=== PATIENT | female | born 1935 | race Native Hawaiian/Other Pacific Islander ===

== ENCOUNTER 2016-08-25 10:50 | Outpatient (CLI) | payer OTHER ==
[~2016-08-25 10:50] MED LIST: ARICEPT ODT10 MG PO; CELEXA40 MG PO; FUROSEMIDE40 MG PO; LISI20TA11 PO; METF500T PO; METO25TA4 PO; PANT40TA PO; POTASSIUM CHLO20 MEQ PO; RANITIDINE 150150 MG PO; TRAZ50TA36 PO; WARFARIN3 MG PO
== END 2016-08-25 19:51 | disposition home or self-care (01) ==
LOC: LABW 10:50
DX: Z79.01 Long term (current) use of anticoagulants (principal); Z51.81 Encounter for therapeutic drug level monitoring
CPT/HCPCS: 36415; 85610

== ENCOUNTER 2016-09-28 10:31 | Outpatient (CLI) | payer OTHER | END 2016-09-28 20:09 | disposition home or self-care (01) | LOC: LABW 10:31 | DX: Z79.01 Long term (current) use of anticoagulants (principal); Z51.81 Encounter for therapeutic drug level monitoring | CPT/HCPCS: 36415; 85610 ==

== ENCOUNTER 2016-10-20 08:57 | Outpatient (CLI) | payer OTHER | END 2016-10-20 19:21 | disposition home or self-care (01) | LOC: LABW 08:57 | DX: Z79.01 Long term (current) use of anticoagulants (principal); Z51.81 Encounter for therapeutic drug level monitoring | CPT/HCPCS: 36415; 85610 ==

== ENCOUNTER 2016-11-25 10:43 | Outpatient (CLI) | payer OTHER ==
[2016-11-25 12:05] LABS: PLATELET COUNT 199 K/uL (152-353)
[2016-11-25 12:25] LABS: POTASSIUM 4.2 mmol/L (3.6-5.2)
== END 2016-11-25 11:43 | disposition home or self-care (01) ==
LOC: LAB 10:43
PROVIDERS: Nurse Practitioner Family
DX: E11.59 Type 2 diabetes mellitus with other circulatory complications (principal); I10 Essential (primary) hypertension; E03.8 Other specified hypothyroidism; D64.89 Other specified anemias; E78.00 Pure hypercholesterolemia, unspecified; D68.8 Other specified coagulation defects; Z79.899 Other long term (current) drug therapy; Z51.81 Encounter for therapeutic drug level monitoring; E55.9 Vitamin D deficiency, unspecified
CPT/HCPCS: 80053; 80061; 82306; 82607; 83036; 84439; 84443; 85027

== ENCOUNTER 2016-11-26 12:45 | Outpatient (CLI) | payer OTHER | END 2016-11-26 19:04 | disposition home or self-care (01) | LOC: LAB 12:45 | DX: E11.59 Type 2 diabetes mellitus with other circulatory complications (principal); I10 Essential (primary) hypertension; E03.8 Other specified hypothyroidism; D64.89 Other specified anemias; E78.00 Pure hypercholesterolemia, unspecified; D68.8 Other specified coagulation defects; Z79.899 Other long term (current) drug therapy; E55.9 Vitamin D deficiency, unspecified; Z51.81 Encounter for therapeutic drug level monitoring | CPT/HCPCS: 36415; 85610 ==

== ENCOUNTER 2017-01-08 09:18 | Outpatient (CLI) | payer OTHER | END 2017-01-08 11:00 | disposition home or self-care (01) | LOC: MAMMO 09:18 | DX: Z12.31 Encounter for screening mammogram for malignant neoplasm of breast (principal) | CPT/HCPCS: G0202-TC ==

== ENCOUNTER 2017-01-21 10:26 | Emergency (ER) | payer OTHER ==
[~2017-01-21] VITALS: Ht 160 cm; Wt 73.9 kg
[2017-01-21 12:02] LABS: PLATELET COUNT 189 K/uL (152-353)
[2017-01-21 12:16] LABS: POTASSIUM 4.1 mmol/L (3.6-5.2)
[2017-01-21 15:00] VITALS: BP 154/64; TEMP 98
== END 2017-01-21 15:03 | disposition home or self-care (01) ==
LOC: ED 10:26
PROVIDERS: Specialist
DX: K57.90 Diverticulosis of intestine, part unspecified, without perforation or abscess without bleeding (principal); R10.84 Generalized abdominal pain
CPT/HCPCS: 36415; 80053; 81000; 82150; 82550; 82553; 83605; 83690; 83735; 84100; 84484; 85027; 93005; 96361; 96365; 99284

== ENCOUNTER 2017-08-21 19:57 | Emergency (ER) | payer OTHER ==
[~2017-08-21] VITALS: Ht 160 cm; Wt 74.8 kg
[~2017-08-21 19:57] MED LIST changes: +ACET-689 PO; +FLONASE AL50 MCG/ACT NAS; +GABA300C2 PO; +HYDR25CA25 PO; +JANTOVEN3 MG PO; +ONDA4TAB3 PO; +TIROSINT75 MCG PO; +TRAM50TA PO; +ZANTAC300 MG PO
[2017-08-21 21:19] LABS: PLATELET COUNT 191 K/uL (152-353)
[2017-08-21 21:27] LABS: POTASSIUM 4.1 mmol/L (3.6-5.2)
[2017-08-21 21:59] VITALS: BP 139/66; TEMP 97.9
== END 2017-08-21 22:01 | disposition home or self-care (01) ==
LOC: ED 19:57
PROVIDERS: Specialist
DX: J40 Bronchitis, not specified as acute or chronic (principal)
CPT/HCPCS: 36415; 80048; 81000; 85027; 87070; 87205; 94664; 99283; J1100

== ENCOUNTER 2017-10-21 09:06 | Outpatient (CLI) | payer OTHER | END 2017-10-21 22:20 | disposition home or self-care (01) | LOC: RAD 09:06 | DX: M25.439 Effusion, unspecified wrist (principal); M25.531 Pain in right wrist ==

== ENCOUNTER 2018-01-07 08:51 | Observation (INO) | payer OTHER ==
[~2018-01-07] VITALS: Ht 160 cm; Wt 74.4 kg
[2018-01-07] VITALS (15 sets, daily range): BP systolic 102–142; BP diastolic 40–75; TEMP 97.8–98.5; Ht 160 cm; Wt 74.4 kg
[2018-01-07 09:25] LABS: PLATELET COUNT 222 K/uL (152-353)
[2018-01-07] MEDS ORDERED: CITALOPRAM40 MG PO (09:32)
[2018-01-07] MEDS ORDERED: ESCITALOPRAM20 MG PO (09:33)
[2018-01-07 09:34] LABS: POTASSIUM 4.2 mmol/L (3.6-5.2)
[2018-01-07] MEDS ORDERED: TRAZ50TA36 PO (09:43)
[2018-01-08] VITALS (11 sets, daily range): BP systolic 117–149; BP diastolic 51–72; TEMP 98–98.7
[2018-01-08 06:31] LABS: PLATELET COUNT 218 K/uL (152-353)
[2018-01-08 06:49] LABS: POTASSIUM 4.7 mmol/L (3.6-5.2)
== END 2018-01-08 13:05 | disposition home or self-care (01) ==
LOC: ED 08:51 → ICU 10:40
DX: T78.3XXA Angioneurotic edema, initial encounter (principal); L98.8 Other specified disorders of the skin and subcutaneous tissue; E11.22 Type 2 diabetes mellitus with diabetic chronic kidney disease; I12.9 Hypertensive chronic kidney disease with stage 1 through stage 4 chronic kidney disease, or unspecified chronic kidney disease; N18.4 Chronic kidney disease, stage 4 (severe); I48.91 Unspecified atrial fibrillation; Z86.73 Personal history of transient ischemic attack (TIA), and cerebral infarction without residual deficits; E03.8 Other specified hypothyroidism; K21.9 Gastro-esophageal reflux disease without esophagitis; F03.90 Unspecified dementia, unspecified severity, without behavioral disturbance, psychotic disturbance, mood disturbance, and anxiety; I95.89 Other hypotension
CPT/HCPCS: 36415; 80053; 81000; 82962; 83735; 85027; 85651; 96360; 99220; 99284; G0378; J0690; J2920; J2930

== ENCOUNTER 2018-01-13 12:01 | Outpatient (CLI) | payer OTHER ==
[~2018-01-13 12:01] MED LIST changes: +CITALOPRAM40 MG PO; +ESCITALOPRAM20 MG PO
== END 2018-01-13 19:12 | disposition home or self-care (01) ==
LOC: MAMMO 12:01
DX: Z12.31 Encounter for screening mammogram for malignant neoplasm of breast (principal)

== ENCOUNTER 2018-06-18 06:23 | Emergency (ER) | payer OTHER ==
[~2018-06-18] VITALS: Ht 160 cm; Wt 68.0 kg
[2018-06-18 07:34] LABS: PLATELET COUNT 196 K/uL (152-353)
[2018-06-18 07:38] LABS: POTASSIUM 4.6 mmol/L (3.6-5.2)
[2018-06-18 08:55] VITALS: BP 136/65; TEMP 97.3
== END 2018-06-18 09:00 | disposition home or self-care (01) ==
LOC: ED 06:23
DX: R10.84 Generalized abdominal pain (principal); N39.0 Urinary tract infection, site not specified; K59.09 Other constipation
CPT/HCPCS: 36415; 80053; 81000; 84443; 85027; 87077; 87086; 87088; 87186; 93005; 96360; 99284

== ENCOUNTER 2018-12-30 11:58 | Emergency (ER) | payer OTHER ==
[~2018-12-30] VITALS: Ht 160 cm; Wt 68.0 kg
[2018-12-30 12:43] LABS: PLATELET COUNT 211 K/uL (152-353)
[2018-12-30 13:12] LABS: POTASSIUM 3.4 mmol/L (3.6-5.2); SODIUM 137 mmol/L (136-145)
[2018-12-30 14:25] VITALS: BP 160/47; TEMP 97.9
== END 2018-12-30 14:25 | disposition home or self-care (01) ==
LOC: ED 11:58
PROVIDERS: Emergency Medicine
DX: E11.649 Type 2 diabetes mellitus with hypoglycemia without coma (principal)
CPT/HCPCS: 36415; 80053; 81000; 82550; 82553; 84484; 85027; 87077; 87086; 87088; 87186; 93005; 96374; 99284; J7060

== ENCOUNTER 2019-01-09 09:05 | Outpatient (CLI) | payer OTHER ==
[2019-01-09 09:55] LABS: PLATELET COUNT 206 K/uL (152-353)
[2019-01-09 10:00] LABS: POTASSIUM 4.5 mmol/L (3.6-5.2)
== END 2019-01-09 19:16 | disposition home or self-care (01) ==
LOC: LABW 09:05
PROVIDERS: Internal Medicine Nephrology
DX: I12.9 Hypertensive chronic kidney disease with stage 1 through stage 4 chronic kidney disease, or unspecified chronic kidney disease (principal); E11.9 Type 2 diabetes mellitus without complications; N18.3 Chronic kidney disease, stage 3 (moderate)
CPT/HCPCS: 36415; 80053; 81000; 82570; 82652; 82746; 83970; 84100; 84155; 85027

== ENCOUNTER 2019-01-19 09:23 | Outpatient (CLI) | payer OTHER | END 2019-01-19 19:17 | disposition home or self-care (01) | LOC: MAMMO 09:23 | DX: Z12.31 Encounter for screening mammogram for malignant neoplasm of breast (principal); I12.9 Hypertensive chronic kidney disease with stage 1 through stage 4 chronic kidney disease, or unspecified chronic kidney disease; E11.22 Type 2 diabetes mellitus with diabetic chronic kidney disease; N18.3 Chronic kidney disease, stage 3 (moderate) ==

== ENCOUNTER 2019-04-25 10:18 | Outpatient (CLI) | payer OTHER ==
[2019-04-25 10:55] LABS: PLATELET COUNT 175 K/uL (152-353)
== END 2019-04-25 22:53 | disposition home or self-care (01) ==
LOC: LABW 10:18
PROVIDERS: Internal Medicine Nephrology
DX: I48.91 Unspecified atrial fibrillation (principal); D64.89 Other specified anemias; M19.90 Unspecified osteoarthritis, unspecified site; L03.818 Cellulitis of other sites; I50.9 Heart failure, unspecified; N18.3 Chronic kidney disease, stage 3 (moderate); E11.9 Type 2 diabetes mellitus without complications; E78.49 Other hyperlipidemia; E03.8 Other specified hypothyroidism; G25.81 Restless legs syndrome; I11.0 Hypertensive heart disease with heart failure
CPT/HCPCS: 36415; 80053; 81000; 82306; 82570; 83970; 84100; 84155; 85027

== ENCOUNTER 2019-06-20 10:00 | Outpatient (CLI) | payer OTHER | END 2019-06-20 20:16 | disposition home or self-care (01) | LOC: RAD 10:00 | DX: M25.532 Pain in left wrist (principal); M47.812 Spondylosis without myelopathy or radiculopathy, cervical region ==

== ENCOUNTER 2019-07-18 11:18 | Outpatient (CLI) | payer OTHER | END 2019-07-18 19:38 | disposition home or self-care (01) | LOC: RAD 11:18 | DX: Z13.820 Encounter for screening for osteoporosis (principal); N95.8 Other specified menopausal and perimenopausal disorders ==

== ENCOUNTER 2019-08-01 09:26 | Outpatient (CLI) | payer OTHER | END 2019-08-01 20:54 | disposition home or self-care (01) | LOC: MRI 09:26 | DX: M47.812 Spondylosis without myelopathy or radiculopathy, cervical region (principal) ==

== ENCOUNTER 2019-09-22 11:31 | Emergency (ER) | payer OTHER ==
[~2019-09-22] VITALS: Ht 160 cm; Wt 65.8 kg
[2019-09-22 12:21] LABS: PLATELET COUNT 199 K/uL (152-353)
[2019-09-22 12:26] LABS: POTASSIUM 3.2 mmol/L (3.6-5.2)
[2019-09-22 15:12] VITALS: BP 145/60; TEMP 97.9
== END 2019-09-22 15:12 | disposition home or self-care (01) ==
LOC: ED 11:31
PROVIDERS: Family Medicine
DX: E11.649 Type 2 diabetes mellitus with hypoglycemia without coma (principal); E87.6 Hypokalemia; Z79.84 Long term (current) use of oral hypoglycemic drugs; I50.9 Heart failure, unspecified
CPT/HCPCS: 36415; 80053; 81000; 82962; 83880; 85027; 96374; 96375; 99284; J7060

== ENCOUNTER 2019-10-17 15:01 | Outpatient (CLI) | payer OTHER ==
[2019-10-17 15:44] LABS: PLATELET COUNT 192 K/uL (152-353)
[2019-10-17 16:00] LABS: POTASSIUM 3.9 mmol/L (3.6-5.2)
== END 2019-10-17 19:11 | disposition home or self-care (01) ==
LOC: LAB 15:01
PROVIDERS: Nurse Practitioner Family
DX: Z00.00 Encounter for general adult medical examination without abnormal findings (principal); K21.9 Gastro-esophageal reflux disease without esophagitis; I10 Essential (primary) hypertension; E11.59 Type 2 diabetes mellitus with other circulatory complications; E03.8 Other specified hypothyroidism; D64.89 Other specified anemias; R11.0 Nausea; Z79.899 Other long term (current) drug therapy; E55.9 Vitamin D deficiency, unspecified
CPT/HCPCS: 80053; 80061; 82306; 83036; 84439; 84443; 84481; 85027

== ENCOUNTER 2019-11-09 08:40 | Outpatient (CLI) | payer OTHER | END 2019-11-09 18:59 | disposition home or self-care (01) | LOC: US 08:40 | DX: I73.89 Other specified peripheral vascular diseases (principal) ==

== ENCOUNTER 2019-12-14 10:06 | Outpatient (CLI) | payer OTHER ==
[2019-12-14 12:27] LABS: POTASSIUM 3.7 mmol/L (3.6-5.2)
== END 2019-12-14 22:35 | disposition home or self-care (01) ==
LOC: LAB 10:06
PROVIDERS: Nurse Practitioner Family
DX: R63.5 Abnormal weight gain (principal); I50.9 Heart failure, unspecified
CPT/HCPCS: 80048; 83880

== ENCOUNTER 2020-01-12 12:27 | Outpatient (CLI) | payer OTHER | END 2020-01-12 23:08 | disposition home or self-care (01) | LOC: LAB 12:27 | DX: I50.9 Heart failure, unspecified (principal); R63.5 Abnormal weight gain | CPT/HCPCS: 83880 ==

== ENCOUNTER 2020-01-29 09:52 | Outpatient (CLI) | payer OTHER | END 2020-01-29 23:08 | disposition home or self-care (01) | LOC: LAB 09:52 | DX: M06.4 Inflammatory polyarthropathy (principal) | CPT/HCPCS: 85651; 86140 ==

== ENCOUNTER 2020-04-25 13:48 | Outpatient (CLI) | payer OTHER ==
[2020-04-25 15:28] LABS: PLATELET COUNT 152 K/uL (152-353)
[2020-04-25 17:27] LABS: POTASSIUM 4.5 mmol/L (3.6-5.2)
== END 2020-04-25 21:52 | disposition home or self-care (01) ==
LOC: LAB 13:48
PROVIDERS: Nurse Practitioner Family
DX: I11.0 Hypertensive heart disease with heart failure (principal); K21.9 Gastro-esophageal reflux disease without esophagitis; E11.59 Type 2 diabetes mellitus with other circulatory complications; D64.89 Other specified anemias; I73.89 Other specified peripheral vascular diseases; E03.8 Other specified hypothyroidism; I50.9 Heart failure, unspecified; M19.032 Primary osteoarthritis, left wrist; M47.812 Spondylosis without myelopathy or radiculopathy, cervical region; M85.89 Other specified disorders of bone density and structure, multiple sites; Z79.899 Other long term (current) drug therapy; E55.9 Vitamin D deficiency, unspecified
CPT/HCPCS: 80053; 80061; 82306; 83036; 84439; 84443; 84481; 85027; 85651; 86140

== ENCOUNTER 2020-05-02 13:54 | Outpatient (CLI) | payer OTHER | END 2020-05-02 23:12 | disposition home or self-care (01) | LOC: LAB 13:54 | DX: N17.9 Acute kidney failure, unspecified (principal); I10 Essential (primary) hypertension; D64.9 Anemia, unspecified; E55.9 Vitamin D deficiency, unspecified; E53.8 Deficiency of other specified B group vitamins | CPT/HCPCS: 82607; 82728; 82746; 83540 ==

== ENCOUNTER 2020-09-02 13:53 | Outpatient (CLI) | payer OTHER | END 2020-09-02 20:45 | disposition home or self-care (01) | LOC: LAB 13:53 | PROVIDERS: ATTEND Nurse Practitioner Family | DX: U07.1 COVID-19 (principal); R05 Cough; R53.83 Other fatigue; R11.2 Nausea with vomiting, unspecified; Z11.59 Encounter for screening for other viral diseases | CPT/HCPCS: 87635; G2023; U0003 ==

== ENCOUNTER 2020-10-22 16:49 | Emergency (ER) | payer OTHER ==
[~2020-10-22] VITALS: Ht 160 cm; Wt 65.8 kg
[2020-10-22 17:12] VITALS: TEMP 99.7
[2020-10-22 18:43] LABS: PLATELET COUNT 133 K/uL (152-353)
[2020-10-22 18:57] LABS: POTASSIUM 3.5 mmol/L (3.6-5.2)
[2020-10-22 19:42] VITALS: BP 155/67
== END 2020-10-22 19:42 | disposition home or self-care (01) ==
LOC: ED 16:49
PROVIDERS: Family Medicine
DX: K59.09 Other constipation (principal); K64.4 Residual hemorrhoidal skin tags
CPT/HCPCS: 36415; 80053; 81000; 85027; 99282; 99283

== ENCOUNTER 2021-06-03 10:15 | Outpatient (CLI) | payer OTHER ==
[~2021-06-03 10:15] MED LIST changes: +CITALOPRAM40 M1 PO; +CRESTOR5 MG PO; +HYDR200T3 PO; +METO-837 PO
== END 2021-06-03 19:36 | disposition home or self-care (01) ==
LOC: LAB 10:15
PROVIDERS: ATTEND Nurse Practitioner Family
DX: R19.7 Diarrhea, unspecified (principal); R68.83 Chills (without fever); R11.0 Nausea; R09.81 Nasal congestion; Z11.52 Encounter for screening for COVID-19
CPT/HCPCS: 87635; G2023; U0003

== ENCOUNTER 2021-06-18 08:34 | Outpatient (CLI) | payer OTHER | END 2021-06-18 19:14 | disposition home or self-care (01) | LOC: LAB 08:34 | PROVIDERS: ATTEND Nurse Practitioner Family | DX: R19.7 Diarrhea, unspecified (principal); R63.4 Abnormal weight loss | CPT/HCPCS: 83630; 87015; 87045; 87324; 87328; 87329; 87449; 87899 ==

== ENCOUNTER 2021-07-22 08:58 | Outpatient (CLI) | payer OTHER | END 2021-07-22 19:03 | disposition home or self-care (01) | LOC: RAD 08:58 | PROVIDERS: ATTEND Nurse Practitioner Family | DX: R06.02 Shortness of breath (principal); W19.XXXA Unspecified fall, initial encounter; T14.8XXA Other injury of unspecified body region, initial encounter ==

== ENCOUNTER 2021-07-26 19:57 | Emergency (ER) | payer OTHER ==
[~2021-07-26] VITALS: Ht 160 cm; Wt 53.1 kg
[2021-07-26 20:51] LABS: PLATELET COUNT 136 K/uL (152-353)
[2021-07-26 21:01] LABS: POTASSIUM 3.5 mmol/L (3.6-5.2)
[2021-07-26 21:09] LABS: PARTIAL THROMBOPLASTIN TIME 25.9 SECONDS (24.5-33.6)
[2021-07-26 22:05] VITALS: BP 178/85; TEMP 98.1
== END 2021-07-26 22:05 | disposition home or self-care (01) ==
LOC: ED 19:57
PROVIDERS: Emergency Medicine
DX: R51.9 Headache, unspecified (principal); I48.91 Unspecified atrial fibrillation; Z91.81 History of falling
CPT/HCPCS: 80048; 81000; 85027; 85610; 85730; 99283

== ENCOUNTER 2021-08-07 15:01 | Outpatient (CLI) | payer OTHER | END 2021-08-07 19:29 | disposition home or self-care (01) | LOC: RAD 15:01 | PROVIDERS: ATTEND Nurse Practitioner Family | DX: E55.9 Vitamin D deficiency, unspecified (principal); E56.8 Deficiency of other vitamins; M06.4 Inflammatory polyarthropathy; M85.89 Other specified disorders of bone density and structure, multiple sites; Z79.899 Other long term (current) drug therapy ==

== ENCOUNTER 2021-08-21 10:59 | Emergency (ER) | payer OTHER ==
[~2021-08-21] VITALS: Ht 160 cm; Wt 52.6 kg
[2021-08-21 11:06] VITALS: TEMP 98.9
[2021-08-21 11:37] LABS: PLATELET COUNT 126 K/uL (152-353)
[2021-08-21 11:45] LABS: POTASSIUM 3.8 mmol/L (3.6-5.2)
[2021-08-21 13:21] VITALS: BP 132/75
== END 2021-08-21 13:21 | disposition home or self-care (01) ==
LOC: ED 10:59
PROVIDERS: Emergency Medicine
PROC: 0HQ1XZZ Repair Face Skin, External Approach (ICD-10-PCS; principal; 2021-08-21)
DX: S01.81XA Laceration without foreign body of other part of head, initial encounter (principal); S01.412A Laceration without foreign body of left cheek and temporomandibular area, initial encounter; S40.022A Contusion of left upper arm, initial encounter; W01.198A Fall on same level from slipping, tripping and stumbling with subsequent striking against other object, initial encounter; Y92.89 Other specified places as the place of occurrence of the external cause
CPT/HCPCS: 80048; 85027; 85610; 85730; 90471; 90715; 99283; J7040

== ENCOUNTER 2021-09-30 09:00 | Outpatient (CLI) | payer OTHER | END 2021-09-30 19:17 | disposition home or self-care (01) | LOC: CT 09:00 | PROVIDERS: ATTEND Nurse Practitioner Family | DX: G44.89 Other headache syndrome (principal) ==

== ENCOUNTER 2021-10-08 20:25 | Emergency (ER) | payer OTHER ==
[~2021-10-08] VITALS: Ht 160 cm; Wt 54.9 kg
[2021-10-08 21:45] VITALS: BP 158/72; TEMP 98.3
== END 2021-10-08 21:53 | disposition home or self-care (01) ==
LOC: ED 20:25
DX: F07.81 Postconcussional syndrome (principal); R51.9 Headache, unspecified; W01.198A Fall on same level from slipping, tripping and stumbling with subsequent striking against other object, initial encounter; Y92.89 Other specified places as the place of occurrence of the external cause
CPT/HCPCS: 96372; 99283; J1885; J2405

== ENCOUNTER 2021-10-20 17:51 | Emergency (ER) | payer OTHER ==
[~2021-10-20] VITALS: Ht 160 cm; Wt 54.9 kg
[2021-10-20 18:42] LABS: PLATELET COUNT 155 K/uL (152-353)
[2021-10-20 18:53] LABS: POTASSIUM 4.2 mmol/L (3.6-5.2)
[2021-10-20 18:58] LABS: PARTIAL THROMBOPLASTIN TIME 24.4 SECONDS (24.5-33.6)
[2021-10-20 21:10] VITALS: BP 150/82; TEMP 97.7
== END 2021-10-20 21:10 | disposition home or self-care (01) ==
LOC: ED 17:51
PROVIDERS: Hospitalist
DX: S39.012A Strain of muscle, fascia and tendon of lower back, initial encounter (principal); N30.10 Interstitial cystitis (chronic) without hematuria; I50.9 Heart failure, unspecified; W18.39XA Other fall on same level, initial encounter; Y92.89 Other specified places as the place of occurrence of the external cause
CPT/HCPCS: 36415; 80048; 81000; 85027; 85610; 85730; 96372; 99283; J0696; J1885

== ENCOUNTER 2021-11-21 13:55 | Outpatient (CLI) | payer OTHER | END 2021-11-21 20:55 | disposition home or self-care (01) | LOC: MRI 13:55 | PROVIDERS: ATTEND Nurse Practitioner Family | DX: G44.89 Other headache syndrome (principal); R41.0 Disorientation, unspecified ==

== ENCOUNTER 2021-12-23 06:16 | Emergency (ER) | payer OTHER ==
[~2021-12-23] VITALS: Ht 160 cm; Wt 51.3 kg
[2021-12-23 07:49] LABS: PLATELET COUNT 132 K/uL (152-353)
[2021-12-23 08:52] VITALS: BP 172/85; TEMP 98
== END 2021-12-23 08:55 | disposition home or self-care (01) ==
LOC: ED 06:16
PROVIDERS: Emergency Medicine Emergency Medical Services
PROC: 0HQ0XZZ Repair Scalp Skin, External Approach (ICD-10-PCS; principal; 2021-12-23)
DX: S01.01XA Laceration without foreign body of scalp, initial encounter (principal); W01.198A Fall on same level from slipping, tripping and stumbling with subsequent striking against other object, initial encounter; Y92.89 Other specified places as the place of occurrence of the external cause
CPT/HCPCS: 85027; 99284; J0360; J2001

== ENCOUNTER 2021-12-26 21:12 | Emergency (ER) | payer OTHER ==
[~2021-12-26] VITALS: Ht 154.9 cm; Wt 51.3 kg
[2021-12-26 21:54] LABS: PLATELET COUNT 113 K/uL (152-353)
[2021-12-26 22:02] LABS: POTASSIUM 3.7 mmol/L (3.6-5.2)
[2021-12-27 01:50] VITALS: BP 168/57; TEMP 98.4
== END 2021-12-27 01:45 | disposition short-term general hospital (02) ==
LOC: ED 21:12
PROVIDERS: Emergency Medicine
DX: I62.01 Nontraumatic acute subdural hemorrhage (principal); I10 Essential (primary) hypertension; Z91.81 History of falling
CPT/HCPCS: 36415; 80053; 81000; 85027; 93005; 99284

== ENCOUNTER 2022-01-05 15:38 | Inpatient (IN) | payer OTHER | END 2022-01-21 09:57 | disposition still patient (30) | LOC: PAVC 15:38 | PROVIDERS: ADMIT Internal Medicine; ATTEND Internal Medicine | DX: S06.5X0D Traumatic subdural hemorrhage without loss of consciousness, subsequent encounter (principal); M62.81 Muscle weakness (generalized); R26.2 Difficulty in walking, not elsewhere classified; R26.81 Unsteadiness on feet; Z74.1 Need for assistance with personal care; R13.12 Dysphagia, oropharyngeal phase; R48.8 Other symbolic dysfunctions | CPT/HCPCS: 80053; 80061; 82306; 82542; 82607; 82728; 82746; 83036; 83540; 84443; 85027; 87081 ==

== ENCOUNTER 2022-02-10 13:56 | Emergency (ER) | payer OTHER ==
[~2022-02-10] VITALS: Ht 154.9 cm; Wt 51.3 kg
[2022-02-10 14:00] VITALS: BP 132/92; TEMP 97.6
== END 2022-02-10 16:04 ==
LOC: ED 13:56
PROC: 0JQN0ZZ Repair Right Lower Leg Subcutaneous Tissue and Fascia, Open Approach (ICD-10-PCS; principal; 2022-02-10)
DX: S81.811A Laceration without foreign body, right lower leg, initial encounter (principal); W23.0XXA Caught, crushed, jammed, or pinched between moving objects, initial encounter; Y92.122 Bedroom in nursing home as the place of occurrence of the external cause
CPT/HCPCS: 99283

== ENCOUNTER 2022-02-20 08:45 | Inpatient (IN) | payer OTHER | END 2022-03-23 09:09 | disposition still patient (30) | LOC: PAVC 08:45 | PROVIDERS: ADMIT Internal Medicine; ATTEND Internal Medicine | CPT/HCPCS: 84443 ==

== ENCOUNTER 2022-03-18 08:24 | Outpatient (CLI) | payer OTHER | END 2022-03-18 19:17 | disposition home or self-care (01) | LOC: LAB 08:24 | PROVIDERS: ATTEND Internal Medicine | DX: E87.6 Hypokalemia (principal); E83.42 Hypomagnesemia | CPT/HCPCS: 83735 ==

== ENCOUNTER 2022-03-23 08:32 | Outpatient (CLI) | payer OTHER | END 2022-03-23 18:55 | disposition home or self-care (01) | LOC: LAB 08:32 | PROVIDERS: ATTEND Internal Medicine | DX: E11.9 Type 2 diabetes mellitus without complications (principal) | CPT/HCPCS: 83036 ==

== ENCOUNTER 2022-03-23 09:55 | Inpatient (IN) | payer OTHER | END 2022-04-23 09:12 | disposition still patient (30) | LOC: PAVC 09:55 | PROVIDERS: ADMIT Internal Medicine; ATTEND Internal Medicine ==

== ENCOUNTER 2022-03-30 07:56 | Outpatient (CLI) | payer OTHER ==
[2022-03-30 08:19] LABS: POTASSIUM 4.1 mmol/L (3.6-5.2)
== END 2022-03-30 18:55 | disposition home or self-care (01) ==
LOC: LAB 07:56
PROVIDERS: ATTEND Family Medicine
DX: R79.89 Other specified abnormal findings of blood chemistry (principal)
CPT/HCPCS: 80048; 83735

== ENCOUNTER 2022-04-23 14:39 | Inpatient (IN) | payer OTHER | END 2022-05-23 10:36 | disposition still patient (30) | LOC: PAVC 14:39 | PROVIDERS: ADMIT Family Medicine; ATTEND Family Medicine ==

== ENCOUNTER 2022-05-01 10:49 | Outpatient (CLI) | payer OTHER ==
[2022-05-01 12:16] LABS: PLATELET COUNT 245 K/uL (152-353)
[2022-05-01 12:23] LABS: POTASSIUM 4.5 mmol/L (3.6-5.2)
== END 2022-05-01 19:08 | disposition home or self-care (01) ==
LOC: LAB 10:49 → US 10:49 → LAB 19:08
PROVIDERS: ATTEND Family Medicine
DX: R10.9 Unspecified abdominal pain (principal)
CPT/HCPCS: 36415; 80053; 82150; 83605; 83690; 85027

== ENCOUNTER 2022-05-05 08:45 | Outpatient (CLI) | payer OTHER | END 2022-05-05 19:27 | disposition home or self-care (01) | LOC: US 08:45 | PROVIDERS: ATTEND Family Medicine | DX: R10.9 Unspecified abdominal pain (principal) ==

== ENCOUNTER 2022-05-23 13:54 | Inpatient (IN) | payer OTHER | END 2022-06-23 12:12 | disposition still patient (30) | LOC: PAVC 13:54 | PROVIDERS: ADMIT Family Medicine; ATTEND Family Medicine ==

== ENCOUNTER 2022-06-02 11:50 | Outpatient (CLI) | payer OTHER ==
[2022-06-02 12:03] LABS: PLATELET COUNT 277 K/uL (152-353)
== END 2022-06-02 19:33 | disposition home or self-care (01) ==
LOC: LAB 11:50
PROVIDERS: ATTEND Family Medicine
DX: R09.89 Other specified symptoms and signs involving the circulatory and respiratory systems (principal); R11.0 Nausea
CPT/HCPCS: 85027; 87502

== ENCOUNTER → 2022-06-23 | Outpatient (CLI) | payer OTHER ==
[2022-06-23 09:24] LABS: PLATELET COUNT 247 K/uL (152-353)
[2022-06-23 10:03] LABS: POTASSIUM 4.9 mmol/L (3.6-5.2)
== END ==
LOC: LAB 09:06
PROVIDERS: ATTEND Family Medicine
DX: E11.9 Type 2 diabetes mellitus without complications (principal); I10 Essential (primary) hypertension; I48.91 Unspecified atrial fibrillation; E03.8 Other specified hypothyroidism
CPT/HCPCS: 80053; 80061; 83036; 84443; 85027

== ENCOUNTER 2022-07-23 15:56 | Inpatient (IN) | payer OTHER | END 2022-08-23 10:49 | disposition still patient (30) | LOC: PAVC 15:56 | PROVIDERS: ADMIT Family Medicine; ATTEND Family Medicine ==

== ENCOUNTER 2022-08-23 14:04 | Inpatient (IN) | payer OTHER | END 2022-09-23 09:26 | disposition still patient (30) | LOC: PAVC 14:04 | PROVIDERS: ADMIT Family Medicine; ATTEND Family Medicine ==

== ENCOUNTER 2022-09-23 11:16 | Outpatient (CLI) | payer OTHER | END 2022-09-23 19:22 | disposition home or self-care (01) | LOC: LAB 11:16 | PROVIDERS: ATTEND Family Medicine | DX: E11.9 Type 2 diabetes mellitus without complications (principal) | CPT/HCPCS: 83036 ==

== ENCOUNTER 2022-09-23 12:14 | Inpatient (IN) | payer OTHER | END 2022-10-21 15:19 | disposition still patient (30) | LOC: PAVC 12:14 | PROVIDERS: ADMIT Family Medicine; ATTEND Family Medicine ==

== ENCOUNTER 2022-10-21 15:58 | Inpatient (IN) | payer OTHER | END 2022-11-21 12:51 | disposition still patient (30) | LOC: PAVC 15:58 | PROVIDERS: ADMIT Family Medicine; ATTEND Family Medicine ==

== ENCOUNTER 2022-11-21 13:09 | Inpatient (IN) | payer OTHER | END 2022-12-21 16:41 | disposition still patient (30) | LOC: PAVC 13:09 | PROVIDERS: ADMIT Family Medicine; ATTEND Family Medicine ==

== ENCOUNTER 2022-12-21 07:52 | Outpatient (CLI) | payer OTHER ==
[2022-12-21 08:32] LABS: POTASSIUM 5.3 mmol/L (3.6-5.2)
[2022-12-21 16:07] LABS: PLATELET COUNT 286 K/uL (152-353)
== END 2022-12-21 19:33 | disposition home or self-care (01) ==
LOC: LAB 07:52
PROVIDERS: ATTEND Family Medicine
DX: E03.8 Other specified hypothyroidism (principal); I10 Essential (primary) hypertension; I25.10 Atherosclerotic heart disease of native coronary artery without angina pectoris; E11.9 Type 2 diabetes mellitus without complications
CPT/HCPCS: 80053; 80061; 83036; 84443; 85027

== ENCOUNTER 2022-12-21 17:26 | Inpatient (IN) | payer OTHER | END 2023-01-21 11:58 | disposition still patient (30) | LOC: PAVC 17:26 | PROVIDERS: ADMIT Family Medicine; ATTEND Family Medicine ==

== ENCOUNTER 2023-01-21 12:13 | Inpatient (IN) | payer OTHER | END 2023-02-20 17:41 | disposition still patient (30) | LOC: PAVC 12:13 | PROVIDERS: ADMIT Family Medicine; ATTEND Family Medicine ==

== ENCOUNTER 2023-03-04 14:57 | Outpatient (CLI) | payer OTHER | END 2023-03-04 19:25 | disposition home or self-care (01) | LOC: LAB 14:57 | PROVIDERS: ATTEND Family Medicine | DX: S95 Injury of blood vessels at ankle and foot level (principal); Y92.89 Other specified places as the place of occurrence of the external cause | CPT/HCPCS: 87070; 87205 ==

== ENCOUNTER 2023-03-10 12:49 | Outpatient (CLI) | payer OTHER | END 2023-03-10 19:59 | disposition home or self-care (01) | LOC: US 12:49 | PROVIDERS: ATTEND Family Medicine | DX: L03.116 Cellulitis of left lower limb (principal); L03.115 Cellulitis of right lower limb ==

== ENCOUNTER 2023-03-23 14:04 | Outpatient (CLI) | payer OTHER | END 2023-03-23 20:33 | disposition home or self-care (01) | LOC: LAB 14:04 | PROVIDERS: ATTEND Family Medicine | DX: E11.9 Type 2 diabetes mellitus without complications (principal) | CPT/HCPCS: 36415; 83036 ==